=== PATIENT | male | born 1940 | race Caucasian/White ===

== ENCOUNTER → 2016-09-07 | Outpatient (CLI) | payer MEDICARE, MEDICAID ==
[~2016-09-07] MED LIST: ACET-654 PO; ACET500T37 PO; ASPI81TA60 PO; BENPAD TOP; BISA10EN PR; DITR5TAB PO; DULC10SU2 PR; ELIQ5TAB PO; GLIP10TA6 PO; GLUC1000 PO; ISOVUE-300 61% 50ML VIAL (Q9967) As Ordered ONE; LANO250T12 PO; LIDOCAINE 2% MDV 20 ML VIAL As Ordered ONE; LISI-542 PO; MACR100C3 PO; METO12TA PO; MILKSUS5 PO; NYST100024 TOP; PROS5TAB PO; TAMS0.4C2 PO; VITA2000 PO; VITA200015 PO; VITA5ELUD PO; ZOCO20TA PO; ZOLO100T PO; [UNRECOGNIZED DRUG - CODE] PO; docusate OR; metoprolol OR; multivitamin OR
--- NOTE | 2016-09-07 16:25 | REPKIM ---
CLINICAL HISTORY: Patient with a history of CVA and dysphagia has a 20F gastrostomy tube because of inability to tolerate oral intake needing enteral support. The existing gastrostomy tube was last changed on 02/05/16. The patient presents for gastrostomy tube check and change for routine maintenance. INTERVENTIONALIST: Cindy Gray MD MEDICATIONS: Local Lidocaine CONTRAST: 10 mL Isovue 300 EBL: less than 1 mL DEVICE USED: 20-[place] ROBERT gastrostomy tube Lot#[id number] FLUORO TIME: 0.3 minutes Technique: Appropriate informed phone consent was obtained from the patients daughter who is the legal guardian, Mrs Nancy Lam, and witnessed. The patient was brought to the interventional radiology suite where timeout was taken to verify the patient's identity and procedure. The abdomen and indwelling catheter was prepped and draped in a sterile fashion. Contrast was injected into the existing indwelling tube shows its tip located in the stomach. The existing tube was then removed over a guidewire in its entirety, and exchanged for a new 20-[place] ROBERT gastrostomy feeding tube. The retention balloon was inflated in the gastric lumen using approximately 7 mL of dilute contrast. The retention disc was snugly secured to the abdominal wall. Contrast was injected into the gastric feeding tube to confirm satisfactory course and position. Post procedure radiograph shows the tip of the tube in the stomach. The patient tolerated the procedure well with no immediate complications. This procedure was performed using fluoroscopy. Dr. Gray was present. IMPRESSION: Successful gastrostomy tube change as discussed above. The new gastrostomy tube is ready for use. Plan: 1. Flush the tube with 20-30 mL water (clean, drinkable tap water is fine) before and after each feeding as well as between medications if you choose to use your tube to instill medications. If you are not using your tube, it needs to be flushed with 20-30 mL of clean tap water daily. 2. The tube should be changed by Interventional Radiology in 6 months as part of preventive maintenance. cc: Jose Antonio Vaughn MD [facility]
== END | disposition home or self-care (01) ==
LOC: M IRPRO 10:33
PROVIDERS: ATTEND Family Medicine
DX: Z43.1 Encounter for attention to gastrostomy (principal); I69.391 Dysphagia following cerebral infarction
CPT/HCPCS: 49450; C1729; C1769; Q9967

== ENCOUNTER → 2016-11-16 | Outpatient (CLI) | payer MEDICARE, MEDICAID ==
[~2016-11-16] MED LIST changes: +E-Z PAQUE 60% w/v SUSP 355ML BOTTLE As Ordered ONE; -ISOVUE-300 61% 50ML VIAL (Q9967) As Ordered ONE; -LANO250T12 PO; +LANO250T15 PO; -LIDOCAINE 2% MDV 20 ML VIAL As Ordered ONE
--- NOTE | 2016-11-16 11:58 | REP ---
SINGLE CONTRAST UPPER GI SERIES WITH SMALL-BOWEL FOLLOW-THROUGH AND KUB: 11/16/2016 HISTORY: Vomiting. FINDINGS: Blanking Press Operator film shows a left upper quadrant gastrostomy PEG tube. Density over the left upper quadrant may reflect a stone in the left renal fossae or other calcification. There are degenerative changes throughout the spine and hips. The gas pattern is nonspecific. Using a Adrienne syringe, single contrast barium fills the stomach. Stomach shows normal distensibility and rugal fold thickness. There is normal rugal fold thickness and distensibility. No visible mass or extrinsic mass effect. The duodenum shows normal distensibility and fold thickness as well. I do not see evidence of extrinsic mass effect on the duodenum. No duodenal or gastric ulcer is identified on these images. There is an episode of reflux observed on overhead films, but not in any of the fluoroscopic imaging when the patient was being maneuvered. Small bowel follow-through followed by additional bottle of single contrast barium passed through the PEG tube into the stomach. Overhead film at 30 minutes shows that contrast has reached the right colon. A normal feathery mucosal pattern of the jejunum and normal appearance of the ileum noted as well. There is no dilated loops, angulated or strictured loops, nodule, mass or fold thickening. No loop separation or angulation. Terminal ileum was challenging to defined. A normal appearance is seen of the distal and internal ileum. The appendix is seen and fills normally. There was no tenderness on ballottement. IMPRESSION: 1. There is one episode of reflux observed into the lower esophageal segment but without hiatal hernia. 2. Stomach and duodenum without ulcer crater, mass, fold thickness abnormality or extrinsic mass effect. 3. Small bowel loops show no dilatation, full-thickness abnormality, nodule or mass. No extrinsic mass effect. The terminal ileum intact. Transit time to the cecum 30 minutes. 4. Fluoroscopy time: 2 minutes 10 seconds. Signed by Mayo Emmanuel MD 11/16/2016 05:15 P
== END ==
LOC: M RAD 09:05
DX: R11.2 Nausea with vomiting, unspecified (principal)

== ENCOUNTER 2016-12-13 08:27 | Inpatient (IN) | payer MEDICARE, MEDICAID ==
[~2016-12-13] VITALS: Ht 177.8 cm; Wt 68.5 kg
[2016-12-13] VITALS (15 sets, daily range): BP systolic 76–152; BP diastolic 47–89
[~2016-12-13 08:27] MED LIST changes: -E-Z PAQUE 60% w/v SUSP 355ML BOTTLE As Ordered ONE
[2016-12-13] MEDS ORDERED: LACTOBACILLUS ACIDOPHILUS CAP (BACID) GT SCH (09:00)
[2016-12-13] MEDS ORDERED: NYSTATIN CREAM 15 GM TOP SCH (09:00)
[2016-12-13] MEDS ORDERED: SERTRALINE HCL 50 MG TAB GT SCH (09:00)
[2016-12-13] MEDS ORDERED: DIGOXIN 0.125 MG TAB GT SCH (09:00)
[2016-12-13] MEDS ORDERED: PANTOPRAZOLE 40MG INJ (PROTONIX) (C9113) IV SCH (09:00)
[2016-12-13] MEDS ORDERED: ACETAMINOPHEN 650 MG SUPP PR PRN (09:15)
[2016-12-13] MEDS ORDERED: GLUCOSE 4 GM CHEW TABLET PO PRN (09:15)
[2016-12-13] MEDS ORDERED: GLUCAGON FOR INJ 1 MG VIAL (J1610) SC PRN (09:15)
[2016-12-13] MEDS ORDERED: DEXTROSE 50% 50 ML SYRINGE IV PRN (09:15)
[2016-12-13] MEDS ORDERED: ONDANSETRON 4MG/2ML VIAL (J2405) IV PRN (09:15)
[2016-12-13] MEDS ORDERED: PIPERACILLIN/TAZOBACTAM SOD 3.375 GM in D5W MINI-BAG PLUS 50 ML IV SCH (09:45)
[2016-12-13] MEDS ORDERED: VANCOMYCIN HCL 1,000 MG, VIAL MATE ADAPTER 1 EACH in D5W 250 ML IV SCH (09:45)
[2016-12-13] MEDS ORDERED: METF1000 GT (10:06)
[2016-12-13] MEDS ORDERED: FINA5TAB2 GT (10:06)
[2016-12-13] MEDS ORDERED: METO25TAB GT (10:06)
[2016-12-13] MEDS ORDERED: BACITAB3 GT (10:06)
[2016-12-13] MEDS ORDERED: DRIS50002 PO (10:06)
[2016-12-13] MEDS ORDERED: GLIP5TAB8 GT (10:06)
[2016-12-13] MEDS ORDERED: BIOTLIQ3 MT (10:06)
[2016-12-13] MEDS ORDERED: SERT50TA GT (10:06)
[2016-12-13] MEDS ORDERED: LOPE2TAB GT (10:06)
[2016-12-13] MEDS ORDERED: NEXI20GR GT (10:06)
[2016-12-13] MEDS ORDERED: LASI40TA GT (10:06)
[2016-12-13] MEDS ORDERED: LIQULIQ6 GT (10:06)
[2016-12-13] MEDS ORDERED: ACET160S3 GT (10:06)
[2016-12-13] MEDS ORDERED: MILKSUS GT (10:06)
[2016-12-13] MEDS ORDERED: NYST10CR TOP (10:06)
[2016-12-13] MEDS ORDERED: ONDA4VLL INJ (10:06)
[2016-12-13] MEDS ORDERED: TYLE160S15 GT (10:06)
[2016-12-13] MEDS ORDERED: INSUDET SC (10:06)
[2016-12-13] MEDS ORDERED: DIGO0.12 GT (10:06)
[2016-12-13] MEDS ORDERED: [UNRECOGNIZED DRUG - CODE] TOP (10:06)
[2016-12-13] MEDS ORDERED: FLEEENE4 PR (10:06)
[2016-12-13] MEDS ORDERED: BISA10SU4 PR (10:06)
[2016-12-13] MEDS ORDERED: ELIQ2.5T GT (10:06)
[2016-12-13] MEDS ORDERED: METO5EL GT (10:06)
[2016-12-13] MEDS ORDERED: IPRATROPIUM 0.5MG/ALBUTEROL 2.5MG INH SOL UD 3ML (DUONEB)(J7620) NEB PRN (10:15)
[2016-12-13] MEDS: NS 1,000 ML IV SCH ×2 (10:29→18:20)
[2016-12-13] MEDS ORDERED: MOM 30ML SUSPENSION UDC GT PRN (10:45)
[2016-12-13] MEDS ORDERED: BISACODYL 10 MG SUPP PR PRN (10:45)
[2016-12-13] MEDS ORDERED: FLEET ENEMA PR PRN (10:45)
[2016-12-13 10:47] LABS: ABG BASE EXCESS -5.9 (-2.0-2.0); ABG PARTIAL PRESSURE CO2 35.7 mmHg (35.0-45.0); ABG PARTIAL PRESSURE O2 90.4 mmHg (75.0-100.0); ABG STANDARD HCO3 19.6 MEQ/L (22.0-26.0); ABG TOTAL CO2 20.1 MEQ/L (23.0-31.0); ABG pH (ARTERIAL) 7.345 UNITS (7.350-7.450)
[2016-12-13 10:48] LABS: MEAN CORPUSCULAR HEMOGLOBIN 28.7 pg (27.0-33.0); MEAN CORPUSCULAR HGB CONC 31.2 g/dl (32.0-36.5); MEAN CORPUSCULAR VOLUME 91.8 fl (80.0-96.0); PLATELET COUNT, AUTOMATED 348 k/mm3 (150-450); RED CELL DISTRIBUTION WIDTH 15.5 % (11.5-14.5); WHITE BLOOD COUNT 12.3 K/mm3 (4.0-10.0)
[2016-12-13 10:52] LABS: INR 1.29
[2016-12-13] MEDS ORDERED: VANCOMYCIN HCL 1,000 MG, VIAL MATE ADAPTER 1 EACH in D5W 250 ML IV ONE (11:00)
[2016-12-13 11:07] LABS: ALBUMIN 2.4 GM/DL (3.2-5.2); ALBUMIN/GLOBULIN RATIO 0.45 (1.00-1.93); ALKALINE PHOSPHATASE 51 U/L (45-117); ALT/SGPT 30 U/L (12-78); ANION GAP 16 MEQ/L (8-16); AST/SGOT 36 U/L (15-37); BILIRUBIN,TOTAL 0.4 MG/DL (0.2-1.0); BLOOD UREA NITROGEN 36 MG/DL (7-18); CALCIUM LEVEL 7.9 MG/DL (8.8-10.2); CARBON DIOXIDE LEVEL 22 MEQ/L (21-32); CHLORIDE LEVEL 101 MEQ/L (98-107); GLOMERULAR FILTRATION RATE 41.9 (>42); GLUCOSE, FASTING 361 MG/DL (83-110); MAGNESIUM LEVEL 1.6 MG/DL (1.8-2.4); POTASSIUM SERUM 4.1 MEQ/L (3.5-5.1); SODIUM LEVEL 139 MEQ/L (136-145); T UPTAKE 35 % (33-40); THYROXINE (T4) 8.5 UG/DL (4.5-12.0); TOTAL PROTEIN 7.7 GM/DL (6.4-8.2)
[2016-12-13 11:13] LABS: BANDS 10 % (< 11)
[2016-12-13 11:14] LABS: PLATELET CLUMPS SMALL AMT
[2016-12-13 11:15] LABS: ANISOCYTOSIS 1+; MICROCYTOSIS 1+; POLYCHROMASIA 1+
[2016-12-13 11:18] LABS: DIGOXIN LEVEL 0.7 NG/ML (0.5-2.0)
[2016-12-13] MEDS: IPRATROPIUM 0.5MG/ALBUTEROL 2.5MG INH SOL UD 3ML (DUONEB)(J7620) NEB SCH ×2 (12:00→15:21)
[2016-12-13] MEDS ORDERED: NOREPINEPHRINE BITARTRATE 8 MG in D5W 500 ML IV SCH (12:00)
--- NOTE | 2016-12-13 12:05 | REP ---
CHEST: HISTORY: Dyspnea. COMPARISON: 12/14/2014, the only prior. The technique utilized in obtaining the radiograph has magnified the cardiac silhouette and accentuated the interstitial markings. There is a diffuse increase in the interstitial markings throughout the lung acosta with bilateral perihilar peribronchial cuffing. Patchy basilar opacities are also noted representing a change from the prior exam. There is silhouetting out of the diaphragmatic surface of the left lung and there is a patchy right middle/lower lobe opacity. The cardiac silhouette is unchanged from the prior exam. The osseous structures are unchanged. IMPRESSION: 1. There is diffuse interstitial edema. 2. Bibasilar opacities, subsegmental atelectatic change/pneumonia/asymmetric pulmonary edema. This needs to be correlated clinically. Obtain PA and lateral views of the chest. Signed by Sachin Jaime DO 12/13/2016 01:32 P
[2016-12-13] MEDS: METOCLOPRAMIDE HCL LIQUID 10 MG/10 ML UDC GT SCH ×2 (12:20→16:11)
[2016-12-13] MEDS: PIPERACILLIN/TAZOBACTAM SOD 2.25 GM in D5W MINI-BAG PLUS 50 ML IV SCH ×2 (12:20→18:19)
[2016-12-13] MEDS: HumaLOG INSULIN (NovoLOG) PER UNIT SC SCH ×2 (12:21→18:19)
--- NOTE | 2016-12-13 12:47 | ECHO ---
DATE OF PROCEDURE: 12/13/2016 REFERRING PHYSICIAN: Dr. Jam Hurley INDICATION: Abnormal ECG. HEIGHT: 68 inches WEIGHT: 68.5 kg DIMENSIONS: IVS: 1.1 LV: 3.2 LVPW: 1.1 LA: 6.1 Aorta: 3.4 Ascending aorta: 3.0 RV: 2.8 FINDINGS: The study is of difficult technical quality. Left ventricle is normal size and likely hyperdynamic contractility based on limited views. I estimate ejection fraction (EF) around 65-70%. Right ventricle appears grossly normal size. Both atria are severely enlarged. Mitral valve is poorly seen. There are heavy calcifications in the bases of posterior mitral leaflet and there is definite restriction of leaflet mobility. There appear to be some calcifications in anterior mitral leaflet as well. By 2-D imaging, very high likelihood of mitral stenosis. Aortic valve was very poorly seen. Tricuspid valve appears grossly normal. Pulmonic valve was not visualized. No pericardial effusion is noted. Inferior vena cava was not seen. Aortic root is normal. Aortic arch and abdominal aorta were not visualized. Doppler interrogation of aortic valve reveals no insufficiency and trivial stenosis with mean gradient 11 mmHg. There is at least moderate and possibly severe mitral stenosis. Due to underlying atrial fibrillation the gradients across the mitral valve vary, but documented gradients were as high as 26 mmHg at its peak and 16 mm at its mean. Calculated mitral valve area was around 1.2 cm2. There is trace tricuspid insufficiency, but quality of tricuspid regurgitation (TR) jet is not sufficient to adequately estimate pulmonary artery pressure. Evaluation of diastolic function is inconclusive due to underlying atrial fibrillation. CONCLUSION 1. Study is of limited technical quality. 2. Normal left ventricle (LV) size with hyperdynamic LV systolic function. Unable to estimate diastolic function. 3. At least moderate mitral stenosis. 4. Aortic sclerosis resulting in mild stenosis. 5. Unable to estimate central venous pressure and pulmonary artery pressure. 6. Left pleural effusion is noted. COMMENT: Subacute bacterial endocarditis (SBE) prophylaxis is not recommended. It is likely that mitral stenosis is hemodynamically significant. My recommendation would be to accomplish appropriate rate control; after which either repeated transthoracic echocardiogram or transesophageal echocardiogram should provide more details. [facility]
--- NOTE | 2016-12-13 12:48 | ECGEPIP ---
Stationary ECG Study [facility] Test Date: 2016-12-13 Pat Name: ANDREY SUAREZ Department: Room: [place] [address] Gender: M Door To Door Salesperson: NIKOS : 1940 Requested By: TAYLA MAR Order Number: [id number] Reading MD: Marita Malik Measurements Intervals [place] Rate: 133 P: [place]: 0 QRS: 8 QRSD: 86 T: 27 QT: 306 QTc: 457 Interpretive Statements ATRIAL FIBRILLATION WITH RAPID VENTRICULAR RESPONSE LOW QRS VOLTAGE IN EXTREMITY LEADS NON-SPECIFIC REPOLARIZATION ABNORMALITIES SINCE 12/15/14 REPOLARIZATION ABNORMALITIES ARE NEW Electronically Signed On 12-13-2016 12:48:01 EDT by Marita Malik
[2016-12-13] MEDS ORDERED: LEVEMIR (INSULIN DETEMIR) 1 UNITS/0.01ML SC ONE (13:15)
--- NOTE | 2016-12-13 13:22 | RO ---
DATE OF PROCEDURE: 12/13/2016 PREOPERATIVE DIAGNOSIS: Hypotension. POSTOPERATIVE DIAGNOSIS: Hypotension. PROCEDURE: Right internal jugular (IJ) internal triple lumen venous catheter. SURGEON: Dong Jeffers DO OPTICIAN APPRENTICE DISPENSING:None ANESTHESIA: 1% lidocaine. Consent was written, obtained by the patient's family and placed in the chart. DESCRIPTION OF PROCEDURE: After informed consent was reviewed with the patient and family, they left the room. Full sterile barrier precautions were used including full draping and chlorhexidine. The right IJ was identified under ultrasound. Of note, the IJ was collapsible especially on inspiration.Time-out was performed with two patient identifiers identifying correct site, correct procedure. Right IJ was identified under ultrasound and 1 % lidocaine was instilled subcutaneously. The Zaynab syringe was then introduced into the IJ on the first pass with return of venous blood flow. The wire was then fed through the needle and the catheter was placed via modified Seldinger technique. The wire was removed. The line was sutured in place at 15 cm. All three ports returned venous blood flow and flushed easily. The line was sutured in place and a sterile impregnated dressing was placed over the site. Postprocedure chest x- ray shows excellent position with the tip of the catheter in superior vena cava (SVC). There were no observed complications. No evidence of pneumothorax. The IVC collapse on inspiration and concern for intravascular depletion and need for iv fluids. MTDD
[2016-12-13] MEDS ORDERED: MORPHINE 2 MG/ML 1ML SYRINGE IV PRN (13:45)
[2016-12-13] MEDS ORDERED: CEFTAROLINE FOSAMIL 300 MG in D5W MINI-BAG PLUS 50 ML IV SCH (14:00)
[2016-12-13] MEDS ORDERED: SODIUM CHLORIDE 0.9% 1000 ML IV ONE ×2 (15:30→18:15)
--- NOTE | 2016-12-13 15:41 | HPEPDOC ---
General Date of Admission December 13, 2016 at 09:15 Chief Complaint The patient is a 76-year-old male admitted with a reason for visit of Pneumonia, Septic Shock. Source: Family, RN/MD, EMS notes reviewed, [facility] records, Old records Exam Limitations: Clinical conditions History of Present Illness 76-year-old male resident of the [facility] with a past medical history of hypertension, diabetes mellitus, dyslipidemia, depression, chronic anemia, atrial fibrillation on Eliquis, diastolic congestive heart failure, left wgeyh-wlv-ovei amputation, and history of CVA with residual dysphagia status post PEG tube placement initially presented to the [facility] after he was found to be hypoxic and febrile at the detention. The patient's history is limited secondary to the patient's current clinical condition. However, according to ER personnel at the [facility] the patient was being worked up for pneumonia. He was transferred here to [facility] after he was noted to be in septic shock from pneumonia. He was given IV fluids and antibiotics then he was subsequently sent here for further evaluation and management. Upon arrival to [facility], the patient was noted to be hypotensive with a blood pressure of 80s systolic over 50s diastolic and in atrial fibrillation with rapid ventricular rate. In addition, the patient was also noted to have a lactic acid level of 9.4. At this time, the patient will be admitted under my service for IV fluid hydration, administration of empiric antibiotics, and possible vasopressor therapy. I have discussed the patient's findings with the patient's daughters (Next of Kin Listed; Nancy Lam, daughter) and sister at the bedside. Home Medications Scheduled (Biotene Dry Mouth Mouthwa) 1 Liq Liq, 1 LIQ MT 6XD, (Reported) (Liquacel) 1 Liq Liq, 30 ML GT DAILY, (Reported) Acetaminophen (Acetaminophen) 160 Mg/5 Ml Yashira, 640 MG GT BID, (Reported) 0600,1700 Apixaban Base (Eliquis) 2.5 Mg Tab, 2.5 MG GT BID, (Reported) Digoxin (Digoxin) 0.125 Mg Tab, 0.125 MG GT DAILY, (Reported) Esomeprazole Magnesium (Nexium) 20 Mg Gra, 20 MG GT DAILY, (Reported) Finasteride (Finasteride) 5 Mg Tab, 5 MG GT DAILY, (Reported) Furosemide (Lasix) 40 Mg Tab, 40 MG GT QPM, (Reported) 1700 Glipizide (Glipizide) 5 Mg Tab, 5 MG GT BID, (Reported) Insulin Detemir (Levemir) 1 Units/0.01 Ml Susp, 38 UNITS SC BID, (Reported) Lactobacillus Acidophilus (Bacid) 1 Tab Tab, 1 TAB GT DAILY, (Reported) Metformin Hydrochloride (Metformin HCl) 1,000 Mg Tab, 1,000 MG GT BID, (Reported ) Metoclopramide HCl (Metoclopramide HCl) 5 Mg/5 Ml Liq, 10 MG GT TID, (Reported) 0600,1400,2000 Metoprolol Tartrate (Metoprolol Tartrate) 25 Mg Tab, 25 MG GT BID, (Reported) Nystatin (Nystatin) 100,000 Unit/Gm Cre, 1 UNIT TOP BID, (Reported) APPLY TO SCROTUM Sertraline Hcl (Sertraline HCl) 50 Mg Tab, 50 MG GT DAILY, (Reported) Vitamin D (Drisdol) 50,000 Unit Cap, 50,000 UNIT PO QMONTH, (Reported) THE TH OF EACH MONTH Scheduled PRN (Anselmo) 1 Mis Mis, 1 DOSE TOP Q4H PRN for DRY LIPS, (Reported) Acetaminophen (Tylenol Childrens) 160 Mg/5 Ml Myrna, 640 MG GT Q6H PRN for PAIN, ( Reported) Bisacodyl (Bisacodyl) 10 Mg Sup, 10 MG [place] DAILY PRN for CONSTIPATION, (Reported) Loperamide HCl (Loperamide HCl) 2 Mg Tab, 4 MG GT PRN PRN for DIARRHEA, ( Reported) Milk Of Magnesia (Milk of Magnesia) 1,200 Mg/15 Ml Myrna, 30 ML GT DAILY PRN for CONSTIPATION, (Reported) Ondansetron (Ondansetron HCl) 4 Mg/2 Ml Inj, 4 MG INJ Q8H PRN for NAUSEA, ( Reported) Sodium Phosphate/Biphosphate (Fleet Enema 7-19 gm/118Ml) 1 Opal Opal, 1 EA [place] DAILY PRN for CONSTIPATION, (Reported) Allergies Coded Allergies: Sulfa Antibiotics (Unverified Allergy, Unknown, 12/14/14) Past Medical History Medical History As noted in HPI. Surgical History Obtained from previous records; fasciotomy of the left lower extremity, status post left pesty-wen-gcii amputation, hernia repair, cataracts, ear surgery, tonsillectomy, adenoidectomy, and PEG tube placement. Social History Unable to obtain the remainder of the patient's family, social history given the patient's clinical condition. Review of Symptoms Other systems Unable to obtain given the patient's clinical condition. Physical Examination General Exam: Positive: Other (patient noted to be laying in supine position in bed with Venturi mask in place. Patient does verbalize some incomprehensible words, but communication is limited given the patient's dysphagia/aphasia following a CVA in the past. However upon questioning, the patient nods his head no that he is not in pain.) ENT Exam: Positive: Atraumatic, Mucous membr. moist/pink Neck Exam: Negative: JVD Chest Exam: Positive: Rhonchi, Wheezing, Diminished Heart Exam: Positive: Tachycardic, Irregular Rhythm Telemetry: Positive: Atrial fibrillation, Tachycardia Abdomen Exam: Positive: Soft, Other (+ PEG tube), Negative: Tenderness Extremity Exam: Positive: Other (left hjaks-qpm-hgxz amputation noted), Negative: Tenderness, Swelling Vital Signs Vital Signs Date Time Temp Pulse Resp B/P (MAP) Pulse Ox O2 Delivery O2 Flow Rate FiO2 12/13/16 12:09 134 12/13/16 12:00 Venturi Mask 40 12/13/16 11:15 32 128/63 (84) 96 12/13/16 10:00 2.0 12/13/16 09:15 98.7 Laboratory Data Labs 24H Laboratory Tests 2 12/13/16 10:34: Blood Gas Bicarbonate Standard 19.6L, Arterial Blood pH 7.345L, Arterial Blood Partial Pressure CO2 35.7, Arterial Blood Partial Pressure O2 90.4, Arterial Blood Total CO2 20.1L, Arterial Blood HCO3 19.0L, Arterial Blood Base Excess - 5.9L, Arterial Blood Oxygen Saturation 96.6 12/13/16 10:35: Neutrophils 76H, Band Neutrophils 10, Lymphocytes (Manual) 13L, Atypical Lymphocytes 1, Platelet Estimate NORMAL, Clumped Platelets SMALL AMT, Polychromasia 1+, Anisocytosis 1+, Microcytosis 1+, Prothrombin Time 16.2H, Prothromb Time International Ratio 1.29, Activated Partial Thromboplast Time 34.0, Anion Gap 16, Glomerular Filtration Rate 41.9L, Lactic Acid Level 9.4*H, Blood Urea Nitrogen 36H, Creatinine 1.70H, Sodium Level 139, Potassium Level 4.1 , Chloride Level 101, Carbon Dioxide Level 22, Calcium Level 7.9L, Aspartate Amino Transf (AST/SGOT) 36, Alanine Aminotransferase (ALT/SGPT) 30, Total Creatine Kinase 45, Alkaline Phosphatase 51, Total Bilirubin 0.4, Total Protein 7.7, Albumin 2.4L, Magnesium Level 1.6L, Creatine Kinase MB 1.0, Creatine Kinase MB Relative Index 2.22, Troponin I < 0.02, Albumin/Globulin Ratio 0.45L, Lipase 161, Thyroid Stimulating Hormone (TSH) 10.400H, Free Thyroxine Index 3.0 , Thyroxine (T4) 8.5, Triiodothyronine (T3) Uptake 35, Digoxin Level 0.7 12/13/16 11:32: Urine Appearance CLOUDYH, Urine Color BARBI, Urine pH 5.0, Urine Specific [place] 1.023, Urine Protein 2+H, Urine Glucose (UA) 2+H, Urine Ketones TRACEH, Urine Urobilinogen 0.2, Urine Bilirubin NEGATIVE, Urine Leukocyte Esterase 3+H, Urine Blood 3+H, Urine Nitrite NEGATIVE, Urine WBC (Auto) 113H, Urine RBC (Auto ) TNTCH, Urine Hyaline Casts (Auto) 18, Urine Bacteria (Auto) 1+H, Urine Squamous Epithelial Cells 1, Urine Amorphous Sediment LARGEH, Urine Mucus (Auto ) SMALL, Urine Sperm (Auto) 12/13/16 12:03: Bedside Glucose (Misc Panel) 435H 12/13/16 14:59: CBC/BMP Laboratory Tests 12/13/16 10:35 Red Blood Count 4.26 L, Mean Corpuscular Volume 91.8, Mean Corpuscular Hemoglobin 28.7, Mean Corpuscular Hemoglobin Concent 31.2 L, Red Cell Distribution Width 15.5 H, Calcium Level 7.9 L, Aspartate Amino Transf (AST/SGOT ) 36, Alanine Aminotransferase (ALT/SGPT) 30, Total Creatine Kinase 45, Alkaline Phosphatase 51, Total Bilirubin 0.4, Total Protein 7.7, Albumin 2.4 L Microbiology Microbiology 12/13/16 Blood Culture, Received Pending 12/13/16 Urine Culture, Received Pending Plan / VTE VTE Prophylaxis Ordered?: Yes Plan / Urinary Catheter Reason for insertion/continuin: Critical Pt monitoring Plan Plan Septic shock secondary to HCAP We will admit the patient to the intensive care unit Blood cultures, sputum culture, urinalysis, chest x-ray ordered The patient has been started on IV fluid hydration and empiric antibiotic therapy A triple lumen catheter has been placed by our wrapper stemmer hand here for vasopressor therapy, and CVP monitoring ABG with no respiratory acidosis noted, anion gap on BMP within normal limits We will continue to monitor the patient on septic protocol Lactic acidosis secondary to above Patient was noted to initially have a lactate of 11, a repeat level here of 9.4 has been noted We'll continue with aggressive IV fluid hydration, and vasopressor therapy thereafter if indicated Acute kidney injury likely secondary to septic shock Patient's serum creatinine noted to be 1.70 (baseline serum creatinine of 1.0) Avoid nephrotoxins Urine lites ordered We will renally dose all medications History of Diastolic Congestive Heart Failure At this time we are hydrating the patient with IV fluids given septic shock mentioned above We will withhold Lasix therapy and carefully monitor the patient's CVP and respiratory status CVP noted to be 4 when central line was placed and measured, and thus we will continue with IV fluid hydration EKG with no acute ST changes noted, troponins within normal limits 2 Atrial fibrillation with rapid ventricular rate The patient's heart rate here has been ranging from 100 to 130s Likely secondary to underlying sepsis, intravascular depletion We will continue to treat the patient with IV fluid hydration 2-D echocardiogram ordered We will Continue the patient on Eliquis Diabetes mellitus We will give the patient half of his basal dose of Levemir twice a day since he will be nothing by mouth Insulin sliding scale for additional coverage History of CVA, with residual dysphagia and PEG tube placement History of left rsmmz-snj-vvdq amputation GI prophylaxis-Protonix DVT prophylaxis-already on Eliquis Prognosis-the patient has an extremely guarded prognosis here given his presentation of septic shock, lactic acidosis, acute kidney injury, and his overall clinical condition which includes a history of diabetes mellitus, congestive heart failure, atrial fibrillation rapid ventricular rate, CVA with residual dysphagia s/p PEG tube, and left rhmff-gsx-bwod amputation. Poor long- term prognosis. I have discussed these findings with the patient and his family at the bedside. At this time the patient does have a MOLST form indicating that he is a DO NOT RESUSCITATE/DO NOT INTUBATE. TAYLA MAR MD December 13, 2016 15:41
--- NOTE | 2016-12-13 15:51 | REP ---
CHEST, ONE VIEWS: REASON: Central line placement. COMPARISON: Earlier today. The tip of a right sided internal jugular central venous catheter is in the superior vena cava. There is no evidence of a pneumothorax. The lung acosta are unchanged. IMPRESSION: Central venous catheter as described above, otherwise no change. Signed by Sachin Jaime DO 12/14/2016 09:53 A
[2016-12-13 18:46] LABS: ABG BASE EXCESS -8.2 (-2.0-2.0); ABG PARTIAL PRESSURE CO2 46.2 mmHg (35.0-45.0); ABG PARTIAL PRESSURE O2 100.9 mmHg (75.0-100.0); ABG STANDARD HCO3 17.8 MEQ/L (22.0-26.0); ABG TOTAL CO2 20.5 MEQ/L (23.0-31.0)
[2016-12-13 18:49] LABS: ABG pH (ARTERIAL) 7.233 UNITS (7.350-7.450)
--- NOTE | 2016-12-13 19:28 | IPNPDOC ---
Text Note Date of Service 12/13/16 6:05pm NOTE Update 6:15 pm After placement of a central line, IV fluid resuscitation, and administration of antibiotics the patient's respiratory status and overall clinical condition continues to decline since admission. He is having a copious amount of respiratory secretions and his respiratory rate has been consistently in the 40s and he appears to be in moderate to severe respiratory distress. In addition his lactic acid level has trended upwards to 11.7 despite adequate resuscitation. At this time, the patient is a DNR/DNI. He is not a candidate for possible BiPAP therapy at this time given the copious amount of respiratory secretions evident. I discussed these findings with the patient's next of kin/ HCP, daughter Nancy Lam and updated her about her father's condition. At this time, the HCP states that she is considering making her father comfort measures only, but she would like to discuss it with her 4 sisters first. I've advised Ms. Lam that I will keep her up-to-date about any further events as we continue to monitor her father's prognosis which at this time appears to be very poor. Update 7:15 After discussing with her 4 sisters, the patient's healthcare proxy/daughter Nancy Lam states that her family has decided to make her father (Doug Griffin) comfort measures only. I have discussed the implications of their decision and answered all questions to their satisfaction. VS,Fishbone, I+O VS, Fishbone, I+O Laboratory Tests 12/13/16 10:35 Red Blood Count 4.26 L, Mean Corpuscular Volume 91.8, Mean Corpuscular Hemoglobin 28.7, Mean Corpuscular Hemoglobin Concent 31.2 L, Red Cell Distribution Width 15.5 H, Calcium Level 7.9 L, Aspartate Amino Transf (AST/SGOT ) 36, Alanine Aminotransferase (ALT/SGPT) 30, Total Creatine Kinase 45, Alkaline Phosphatase 51, Total Bilirubin 0.4, Total Protein 7.7, Albumin 2.4 L Vital Signs Date Time Temp Pulse Resp B/P (MAP) Pulse Ox O2 Delivery O2 Flow Rate FiO2 12/13/16 16:22 40 92 12/13/16 16:12 Venturi Mask 50 12/13/16 16:00 98.7 128/65 (86) 12/13/16 15:30 130 12/13/16 10:00 2.0 TAYLA MAR MD December 13, 2016 19:28
[2016-12-13] MEDS ORDERED: MORPHINE 10MG/0.5ML ORAL CONCENTRATE SOLUTION U/D SL PRN (19:30)
[2016-12-13] MEDS ORDERED: SCOPOLAMINE 1.5 MG TRANSDERMAL TD PRN (19:30)
[2016-12-13] MEDS: MORPHINE 2 MG/ML 1ML SYRINGE IV PRN (20:07)
[2016-12-13] MEDS ORDERED: APIXABAN 2.5 MG TAB (ELIQUIS) GT SCH (21:00)
[2016-12-13] MEDS ORDERED: ACETAMINOPHEN 325 MG/10.15 ML UDC GT SCH (21:00)
[2016-12-13] MEDS ORDERED: LEVEMIR (INSULIN DETEMIR) 1 UNITS/0.01ML SC SCH (21:00)
[2016-12-13] MEDS: LORazepam 2 MG/ML VIAL (J2060) IV PRN (21:43)
[2016-12-14] MEDS: LORazepam 2 MG/ML VIAL (J2060) IV PRN ×4 (02:52→16:51)
[2016-12-14] MEDS: MORPHINE 2 MG/ML 1ML SYRINGE IV PRN ×4 (05:21→19:40)
--- NOTE | 2016-12-14 09:02 | IPNPDOC ---
Subjective Date Seen The patient was seen on 12/14/16. Subjective Chief Complaint/HPI The patient is a 76-year-old male admitted with a reason for visit of Pneumonia, Septic Shock. Other systems Unable to obtain 2/2 patient's clinical condition Objective Physical Examination General Exam: Positive: No Acute Distress, Other (resting comfortably in bed with a non-rebreather mask in place) ENT Exam: Positive: Atraumatic Neck Exam: Negative: JVD Chest Exam: Positive: Rhonchi, Wheezing, Diminished Heart Exam: Positive: Tachycardic, Irregular Rhythm Telemetry: Positive: Atrial fibrillation, Tachycardia Abdomen Exam: Positive: Soft, Other (+ PEG tube), Negative: Tenderness Extremity Exam: Positive: Other (left wtdws-[id number] amputation noted), Negative: Tenderness, Swelling Assessment /Plan Plan/VTE VTE Prophylaxis Ordered?: Yes Plan/Urinary Catheter Reason for insertion/continuin: Critical Pt monitoring Plan Septic shock secondary to HCAP Lactic acidosis secondary to above Acute kidney injury likely secondary to septic shock History of Diastolic Congestive Heart Failure Atrial fibrillation with rapid ventricular rate Diabetes mellitus History of CVA, 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 We will continue to provide supportive care to the family at this time. Continue ENVIR[employer]MENT [employer] protocol. VS, I&O, 24H, Fishbone Vital Signs/I&O Vital Signs Date Time Temp Pulse Resp B/P (MAP) Pulse Ox O2 Delivery O2 Flow Rate FiO2 12/14/16 05:21 32 12/13/16 20:30 Non-Rebreather 12/13/16 16:22 92 12/13/16 16:12 50 12/13/16 16:00 98.7 128/65 (86) 12/13/16 15:30 130 12/13/16 10:00 2.0 I&O- Last 24 Hours up to 6 AM 12/14/16 05:59 Intake Total 2420 ml Output Total 265 ml Balance 2155 ml Laboratory Data 24H LABS Laboratory Tests 2 12/13/16 10:34: Blood Gas Bicarbonate Standard 19.6L, Arterial Blood pH 7.345L, Arterial Blood Partial Pressure CO2 35.7, Arterial Blood Partial Pressure O2 90.4, Arterial Blood Total CO2 20.1L, Arterial Blood HCO3 19.0L, Arterial Blood Base Excess - 5.9L, Arterial Blood Oxygen Saturation 96.6 12/13/16 10:35: Neutrophils 76H, Band Neutrophils 10, Lymphocytes (Manual) 13L, Atypical Lymphocytes 1, Platelet Estimate NORMAL, Clumped Platelets SMALL AMT, Polychromasia 1+, Anisocytosis 1+, Microcytosis 1+, Prothrombin Time 16.2H, Prothromb Time International Ratio 1.29, Activated Partial Thromboplast Time 34.0, Anion Gap 16, Glomerular Filtration Rate 41.9L, Lactic Acid Level 9.4*H, Blood Urea Nitrogen 36H, Creatinine 1.70H, Sodium Level 139, Potassium Level 4.1 , Chloride Level 101, Carbon Dioxide Level 22, Calcium Level 7.9L, Aspartate Amino Transf (AST/SGOT) 36, Alanine Aminotransferase (ALT/SGPT) 30, Total Creatine Kinase 45, Alkaline Phosphatase 51, Total Bilirubin 0.4, Total Protein 7.7, Albumin 2.4L, Magnesium Level 1.6L, Creatine Kinase MB 1.0, Creatine Kinase MB Relative Index 2.22, Troponin I < 0.02, Albumin/Globulin Ratio 0.45L, Lipase 161, Thyroid Stimulating Hormone (TSH) 10.400H, Free Thyroxine Index 3.0 , Thyroxine (T4) 8.5, Triiodothyronine (T3) Uptake 35, Digoxin Level 0.7 12/13/16 11:32: Urine Appearance CLOUDYH, Urine Color BARBI, Urine pH 5.0, Urine Specific Cherry Log 1.023, Urine Protein 2+H, Urine Glucose (UA) 2+H, Urine Ketones TRACEH, Urine Urobilinogen 0.2, Urine Bilirubin NEGATIVE, Urine Leukocyte Esterase 3+H, Urine Blood 3+H, Urine Nitrite NEGATIVE, Urine WBC (Auto) 113H, Urine RBC (Auto ) TNTCH, Urine Hyaline Casts (Auto) 18, Urine Bacteria (Auto) 1+H, Urine Squamous Epithelial Cells 1, Urine Amorphous Sediment LARGEH, Urine Mucus (Auto ) SMALL, Urine Sperm (Auto) 12/13/16 12:03: Bedside Glucose (Misc Panel) 435H 12/13/16 14:59: Lactic Acid Followup at 4 Hours 11.7*H 12/13/16 17:07: Urine Random Creatinine 48.9, Urine Random Sodium 70 12/13/16 17:10: Total Creatine Kinase 85#, Creatine Kinase MB 1.2, Creatine Kinase MB Relative Index 1.41, Troponin I < 0.02 12/13/16 17:52: Bedside Glucose (Misc Panel) 374H 12/13/16 18:40: Blood Gas Bicarbonate Standard 17.8L, Arterial Blood pH 7.233*L, Arterial Blood Partial Pressure CO2 46.2H, Arterial Blood Partial Pressure O2 100.9H, Arterial Blood Total CO2 20.5L, Arterial Blood HCO3 19.0L, Arterial Blood Base Excess - 8.2L, Arterial Blood Oxygen Saturation 97.0 CBC/BMP Laboratory Tests 12/13/16 10:35 Red Blood Count 4.26 L, Mean Corpuscular Volume 91.8, Mean Corpuscular Hemoglobin 28.7, Mean Corpuscular Hemoglobin Concent 31.2 L, Red Cell Distribution Width 15.5 H, Calcium Level 7.9 L, Aspartate Amino Transf (AST/SGOT ) 36, Alanine Aminotransferase (ALT/SGPT) 30, Total Creatine Kinase 45, Alkaline Phosphatase 51, Total Bilirubin 0.4, Total Protein 7.7, Albumin 2.4 L Microbiology Microbiology 12/13/16 Blood Culture, Received Pending 12/13/16 Gram Stain - Final, Resulted 12/13/16 Sputum Culture, Resulted Pending 12/13/16 MRSA Screen, Received Pending 12/13/16 Urine Culture, Received Pending TAYLA MAR MD December 14, 2016 09:02
--- NOTE | 2017-02-02 16:37 | DS.PDOC ---
Discharge Summary General Date of Admission December 13, 2016 at 09:15 Date of Discharge 12/15/16 Discharge Summary PROCEDURES PERFORMED DURING STAY: TLC Placement ADMITTING DIAGNOSES: Septic shock secondary to HCAP Lactic acidosis secondary to above Acute kidney injury likely secondary to septic shock History of Diastolic Congestive Heart Failure Atrial fibrillation with rapid ventricular rate Diabetes mellitus History of CVA, with residual dysphagia and PEG tube placement History of left xiepk-kbi-muex amputation DISCHARGE DIAGNOSES: Septic shock secondary to HCAP Lactic acidosis secondary to above Acute kidney injury likely secondary to septic shock History of Diastolic Congestive Heart Failure Atrial fibrillation with rapid ventricular rate Diabetes mellitus History of CVA, with residual dysphagia and PEG tube placement History of left bukeu-qrj-prin amputation COMPLICATIONS/CHIEF COMPLAINT: Pneumonia,Septic Shock. HISTORY OF PRESENT ILLNESS: . 76-year-old male resident of the [facility] with a past medical history of hypertension, diabetes mellitus, dyslipidemia, depression, chronic anemia, atrial fibrillation on Eliquis, diastolic congestive heart failure, left dvkka-uoh-nusw amputation, and history of CVA with residual dysphagia status post PEG tube placement initially presented to the [facility] after he was found to be hypoxic and febrile at the detention. The patient's history is limited secondary to the patient's current clinical condition. However, according to ER personnel at the [facility] the patient was being worked up for pneumonia. He was transferred here to [facility] after he was noted to be in septic shock from pneumonia. He was given IV fluids and antibiotics then he was subsequently sent here for further evaluation and management. Upon arrival to [facility], the patient was noted to be hypotensive with a blood pressure of 80s systolic over 50s diastolic and in atrial fibrillation with rapid ventricular rate. In addition, the patient was also noted to have a lactic acid level of 9.4. At this time, the patient will be admitted under my service for IV fluid hydration, administration of empiric antibiotics, and possible vasopressor therapy. I have discussed the patient's findings with the patient's daughters (Next of Kin Listed; Nancy Lam, daughter) and sister at the bedside. During hospitalization, despite adequate IV fluid hydration, IV antibody therapy , and vasopressor therapy the patient's respiratory status worsened as he was continually tachypnic, tachycardic, and increasingly distressed.The patient was made comfort measures only on 12/13/16 at 7:15 PM by the patient's healthcare proxy and daughter Nancy Lam. The patient was subsequently provided with supportive care and at 12/15/16 @ 12:20 am. DISCHARGE MEDICATIONS: Please see below. ALLERGIES: Please see below. LABORATORY DATA: Please see below. IMAGING: CHEST: HISTORY: Dyspnea. COMPARISON: 12/14/2014, the only prior. The technique utilized in obtaining the radiograph has magnified the cardiac silhouette and accentuated the interstitial markings. There is a diffuse increase in the interstitial markings throughout the lung acosta with bilateral perihilar peribronchial cuffing. Patchy basilar opacities are also noted representing a change from the prior exam. There is silhouetting out of the diaphragmatic surface of the left lung and there is a patchy right middle/lower lobe opacity. The cardiac silhouette is unchanged from the prior exam. The osseous structures are unchanged. IMPRESSION: 1. There is diffuse interstitial edema. 2. Bibasilar opacities, subsegmental atelectatic change/pneumonia/asymmetric pulmonary edema. This needs to be correlated clinically. Obtain PA and lateral views of the chest. PROGNOSIS: DISCHARGE CONDITION: TIME SPENT ON DISCHARGE: Greater than 30 minutes. Discharge Medications Scheduled (Biotene Dry Mouth Mouthwa) 1 Liq Liq, 1 LIQ MT 6XD, (Reported) (Liquacel) 1 Liq Liq, 30 ML GT DAILY, (Reported) Acetaminophen (Acetaminophen) 160 Mg/5 Ml Yashira, 640 MG GT BID, (Reported) 0600,1700 Apixaban Base (Eliquis) 2.5 Mg Tab, 2.5 MG GT BID, (Reported) Digoxin (Digoxin) 0.125 Mg Tab, 0.125 MG GT DAILY, (Reported) Esomeprazole Magnesium (Nexium) 20 Mg Gra, 20 MG GT DAILY, (Reported) Finasteride (Finasteride) 5 Mg Tab, 5 MG GT DAILY, (Reported) Furosemide (Lasix) 40 Mg Tab, 40 MG GT QPM, (Reported) 1700 Glipizide (Glipizide) 5 Mg Tab, 5 MG GT BID, (Reported) Insulin Detemir (Levemir) 1 Units/0.01 Ml Susp, 38 UNITS SC BID, (Reported) Lactobacillus Acidophilus (Bacid) 1 Tab Tab, 1 TAB GT DAILY, (Reported) Metformin Hydrochloride (Metformin HCl) 1,000 Mg Tab, 1,000 MG GT BID, (Reported ) Metoclopramide HCl (Metoclopramide HCl) 5 Mg/5 Ml Liq, 10 MG GT TID, (Reported) 0600,1400,2000 Metoprolol Tartrate (Metoprolol Tartrate) 25 Mg Tab, 25 MG GT BID, (Reported) Nystatin (Nystatin) 100,000 Unit/Gm Cre, 1 UNIT TOP BID, (Reported) APPLY TO SCROTUM Sertraline Hcl (Sertraline HCl) 50 Mg Tab, 50 MG GT DAILY, (Reported) Vitamin D (Drisdol) 50,000 Unit Cap, 50,000 UNIT PO QMONTH, (Reported) THE OF EACH MONTH Scheduled PRN (Chapstick) 1 Mis Mis, 1 DOSE TOP Q4H PRN for DRY LIPS, (Reported) Acetaminophen (Tylenol Childrens) 160 Mg/5 Ml Myrna, 640 MG GT Q6H PRN for PAIN, ( Reported) Bisacodyl (Bisacodyl) 10 Mg Sup, 10 MG DC DAILY PRN for CONSTIPATION, (Reported) Loperamide HCl (Loperamide HCl) 2 Mg Tab, 4 MG GT PRN PRN for DIARRHEA, ( Reported) Milk Of Magnesia (Milk of Magnesia) 1,200 Mg/15 Ml Myrna, 30 ML GT DAILY PRN for CONSTIPATION, (Reported) Ondansetron (Ondansetron HCl) 4 Mg/2 Ml Inj, 4 MG INJ Q8H PRN for NAUSEA, ( Reported) Sodium Phosphate/Biphosphate (Fleet Enema 7-19 gm/118Ml) 1 Opal Opal, 1 EA DC DAILY PRN for CONSTIPATION, (Reported) Allergies Coded Allergies: Sulfa Antibiotics (Unverified Allergy, Unknown, 12/14/14) TAYLA MAR MD Feb 02, 2017 16:37
== END 2016-12-15 00:20 | disposition expired | DRG 871 ==
LOC: M ICU 09:15 → M MSPAV 19:54
PROVIDERS: ADMIT Internal Medicine; ATTEND Internal Medicine
PROC: 05H533Z Insertion of Infusion Device into Right Subclavian Vein, Percutaneous Approach (ICD-10-PCS; principal; 2016-12-13)
DX: A41.9 Sepsis, unspecified organism (principal); R65.21 Severe sepsis with septic shock; J18.9 Pneumonia, unspecified organism; N17.9 Acute kidney failure, unspecified; E87.2 Acidosis; I50.32 Chronic diastolic (congestive) heart failure; Z66 Do not resuscitate; I69.391 Dysphagia following cerebral infarction; E11.9 Type 2 diabetes mellitus without complications; I48.91 Unspecified atrial fibrillation; I69.921 Dysphasia following unspecified cerebrovascular disease; Z89.612 Acquired absence of left leg above knee; D64.9 Anemia, unspecified; E78.5 Hyperlipidemia, unspecified; Z51.5 Encounter for palliative care; Z79.899 Other long term (current) drug therapy; Z79.4 Long term (current) use of insulin; Z88.2 Allergy status to sulfonamides; Z93.1 Gastrostomy status